=== PATIENT | female | born 1960 | race Caucasian/White ===

== ENCOUNTER 2017-04-11 20:54 | Inpatient (IN) | payer OTHER ==
[~2017-04-11] VITALS: Ht 172.7 cm; Wt 89.8 kg
[~2017-04-11 20:54] MED LIST: GABA-636 PO; HYDR25CA1 PO; OXYC1TAB PO; TRA200 PO
[2017-04-11 21:06] VITALS: BP 123/73
[2017-04-11] MEDS ORDERED: [UNRECOGNIZED DRUG - CODE] PO (21:11)
[2017-04-11] MEDS ORDERED: TOPI25TA41 PO (21:11)
--- NOTE | 2017-04-11 21:56 | NUR ---
TO ER BED 11
--- NOTE | 2017-04-11 21:58 | NUR ---
56/F CAME IN W C/O 09/25 DIFFUSED ABD PAIN X 1 WEEK. PT STATES SHE IS SCHEDULED FOR CT SCAN ORDERED BY PMD FOR SIMILAR SYMPTOMS, STATES "IT FEELS LIKE ITS BURNING, THERE'S A BULGE ON MY LEFT UPPER STOMACH WHEN I STAND UP". ABD SOFT, ROUND, DIFFUSSED TENDERNESS WITH HERNIA ON LUQ NOTED, BS ACTIVE X 4. REPORTS NAUSEA, DENIES V/D, FEVER/CHILLS, SOB/CP, DENIES DYSURIA/HEMATURIA. PMH: FIBROMYALGIA, CHRONIC BACK PAIN, RX: PERCOCET
[2017-04-11 23:13] LABS: APPEARANCE,URINE CLOUDY (CLEAR); BILIRUBIN,URINE NEGATIVE (NEGATIVE); BLOOD, URINE NEGATIVE (NEGATIVE); COLOR,URINE YELLOW (YELLOW); LEUKOCYTE ESTERASE ,URINE NEGATIVE (NEGATIVE); NITRITE, URINE POSITIVE (NEGATIVE); PH,URINE 5.5 (5.0-9.0); UGLUCOSE NEGATIVE (NEGATIVE)
[2017-04-11 23:25] LABS: RBC,URINE 0-5 (RARE) /HPF (0-5)
[2017-04-11 23:26] LABS: CALCIUM OXALATE CRYSTALS,UR 0-10 /HPF (None Seen)
[2017-04-11 23:50] LABS: BASOPHILS # (AUTO) 0.5 K/uL (0.00-0.22); BASOPHILS % (AUTO) 4.9 % (0.0-2.0); EOSINOPHILS # (AUTO) 0.4 K/uL (0-0.4); EOSINOPHILS % (AUTO) 4.8 % (0.0-4.0); HEMATOCRIT 43.7 % (36-48); HEMOGLOBIN 14.4 g/dL (12.0-16.0); LYMPHOCYTES # (AUTO) 2.6 K/uL (2.5-16.5); LYMPHOCYTES % (AUTO) 28.7 % (20.5-51.1); MEAN CORPUSCULAR HEMOGLOBIN 29 pg (27-31); MEAN CORPUSCULAR HGB CONC 33 g/dL (33-37); MEAN CORPUSCULAR VOLUME 89 fL (80-94); MONOCYTES # (AUTO) 0.7 K/uL (0.8-1.0); MONOCYTES % (AUTO) 7.9 % (1.7-9.3); NEUTROPHILS % (AUTO) 53.7 % (42.2-75.2); PLATELET COUNT (AUTO) 246 K/uL (140-450); RED BLOOD CELL COUNT(AUTO) 4.91 MIL/uL (4.20-5.40); RED CELL DISTRIBUTION WIDTH 12.8 % (11.6-13.7); WHITE BLOOD COUNT (AUTO) 9.2 K/uL (4.8-10.8)
[2017-04-11 23:59] LABS: CARBON DIOXIDE 26.8 mmol/L (21-32); CREATININE 0.7 mg/dL (0.6-1.3); POTASSIUM 3.8 mmol/L (3.5-5.1)
[2017-04-12 00:05] LABS: ALBUMIN 3.5 g/dL (3.4-5.0); TOTAL BILIRUBIN 0.5 mg/dL (0.0-1.0)
[2017-04-12] MEDS ORDERED: NACL 0.9% 1,000 ML IV ONE (00:05)
[2017-04-12] MEDS ORDERED: MORPHINE SULFATE 4 MG/ML SYR IVP ONE (00:05)
[2017-04-12] MEDS ORDERED: ONDANSETRON 4 MG/2 ML VIAL IVP ONE (00:05)
[2017-04-12] MEDS ORDERED: NITROFURANTOIN 100 MG CAP PO SCH (00:10)
[2017-04-12] MEDS ORDERED: MORPHINE SULFATE 4 MG/ML SYR ONE (00:14)
[2017-04-12] MEDS ORDERED: ONDANSETRON 4 MG/2 ML VIAL ONE (00:15)
--- NOTE | 2017-04-12 00:41 | NUR ---
RECIEVED ROOM NUMBER FOR PT. 116
[2017-04-12] MEDS ORDERED: NITROFURANTOIN 100 MG CAP ONE (00:54)
--- NOTE | 2017-04-12 01:01 | NUR ---
Patient appears to be resting comfortably in bed. Vital Signs within normal limits. Respirations even and unlabored.
[2017-04-12] MEDS ORDERED: HYDROcodone/APAP 7.5/325 MG 1 TAB PO PRN ×2 (01:15→20:30)
[2017-04-12] MEDS ORDERED: ACETAMINOPHEN 325 MG TAB PO PRN ×2 (01:15→20:35)
[2017-04-12] MEDS ORDERED: ONDANSETRON 4 MG/2 ML VIAL IVP PRN ×2 (01:15→20:35)
--- NOTE | 2017-04-12 01:19 | NUR ---
PO MEDS GIVEN-NADR AT THIS TIME
[2017-04-12 01:38] LABS: PROTHROMBIN TIME 10.6 secs (10.8-13.4)
--- NOTE | 2017-04-12 01:45 | NUR ---
Patient will be admitted to care of [facility]. Admited to TELE. Will go to room 116A . Belongings list completed. BEDSIDE Report to KIRTI WHITE. IV INFUSING UPON TRANSFER
[2017-04-12 01:47] LABS: CHOL/HDL RATIO 4.6 (1-4.5); FREE T4 (FREE THYROXINE) 1.04 ng/dL (0.76-1.46); MAGNESIUM 2.1 mg/dL (1.8-2.4); THYROID STIMULATING HORMONE 2.38 uIU/mL (0.34-3.74)
[2017-04-12] MEDS: NACL 0.9% 1,000 ML IV SCH ×4 (02:03→20:35)
[2017-04-12 02:05] VITALS: BP 107/75
--- NOTE | 2017-04-12 02:05 | NUR ---
ADMITTED PATIENT TO THE TELE UNIT, PATIENT AWAKE ALERT ORIENTED X4, NO S/S OF DISTRESS NOTED, RESPIRATION EVEN AND UNLABORED, TELE MONITOR PLACED ON PATIENT, IV INFILTRATED, IV SITE TENDER AND FLUIDS LEAKING NOTED, PLAN OF CARE DISCUSSED, PATIENT VERBALIZED UNDERSTANDING, CALL LIGHT WITHIN REACH, SAFETY MEASURE ENSURED, WILL CONTINUE TO MONITOR.
[2017-04-12] MEDS ORDERED: CARV12.5 PO (02:33)
[2017-04-12 02:43] LABS: BARBITURATE, URINE NEG. ng/ml (NEG <=200); BENZODIAZEPINE, URINE NEG. ng/mL (NEG <=200); CANNABINOID, URINE NEG. ng/mL (NEG <=50); COCAINE, URINE NEG. ng/mL (NEG <=300); OPIATE, URINE NEG. ng/mL (NEG <=2000); PHENCYCLIDINE SCREEN,URINE NEG. ng/mL (NEG <=25)
--- NOTE | 2017-04-12 03:00 | NUR ---
STARTED NEW IV 22G ON RT FOREARM. PATIENT TOLERATED WELL. OLD IV TAKEN OUT, TIP INTACT, NO ACTIVE BLEEDING NOTED. WILL CONTINUE TO MONITOR.
[2017-04-12] MEDS ORDERED: NITROGLYCERIN 0.4 MG TAB SL PRN ×2 (03:05→20:40)
[2017-04-12] MEDS ORDERED: MORPHINE SULFATE 2 MG/ML SYR IVP PRN (03:20)
--- NOTE | 2017-04-12 05:28 | NUR ---
STRAINED 300ML URINE, NO CALCULUS FOUND.
--- NOTE | 2017-04-12 07:27 | NUR ---
ENDORSED PLAN OF CARE TO DAY SHIFT RN, PATIENT IS IN STABLE CONDITION, NO S/S OF DISTRESS NOTED.
--- NOTE | 2017-04-12 07:30 | NUR ---
RECEIVED PT REPORT FROM [facility] SHIFT NURSE. PT IS AWAKE ALERT ORIENTED X4, NO S/S OF DISTRESS NOTED. PT IS ON TELE. IV NOTED TO THE RIGHT FA 22G, PATENT, INTACT AND INFUSING WELL. PLAN OF CARE DISCUSSED, PATIENT VERBALIZED UNDERSTANDING, CALL LIGHT WITHIN REACH, SAFETY MEASURE ENSURED, WILL CONTINUE TO MONITOR.
[2017-04-12 08:00] VITALS: BP_SYST 107; BP_SYST 133; BP_DIAS 70; BP_DIAS 96
[2017-04-12] MEDS ORDERED: TAMSULOSIN 0.4 MG CAP PO SCH (08:30)
[2017-04-12] MEDS ORDERED: metroNIDAZOLE 500 MG/NS PREMIX 100 ML IV ONE ×2 (08:34→13:00)
[2017-04-12] MEDS ORDERED: DOCUSATE SODIUM 100 MG GELCAP PO ONE (08:37)
[2017-04-12] MEDS ORDERED: SERTRALINE 50 MG TAB ONE (08:37)
[2017-04-12] MEDS ORDERED: ASPIRIN 81 MG TAB.CHEW ONE (08:37)
[2017-04-12] MEDS ORDERED: TAMSULOSIN 0.4 MG CAP ONE (08:38)
[2017-04-12] MEDS ORDERED: LACTOBACILLUS RHAMNOSUS GG 1 EACH CAP ONE (08:38)
[2017-04-12] MEDS ORDERED: PANTOPRAZOLE 40 MG TABEC PO ONE (08:38)
[2017-04-12] MEDS ORDERED: LEVOFLOXACIN 750 MG/D5W PREMIX 150 ML IV ONE (08:39)
[2017-04-12] MEDS: metroNIDAZOLE 500 MG/NS PREMIX 100 ML IV SCH ×3 (08:43→21:06)
[2017-04-12] MEDS ORDERED: CARVEDILOL 12.5 MG TAB PO SCH (09:00)
[2017-04-12] MEDS ORDERED: LACTOBACILLUS RHAMNOSUS GG 1 EACH CAP PO SCH (09:00)
[2017-04-12] MEDS ORDERED: DOCUSATE SODIUM 100 MG GELCAP PO SCH (09:00)
[2017-04-12] MEDS ORDERED: ASPIRIN 81 MG TAB.CHEW PO SCH (09:00)
[2017-04-12] MEDS ORDERED: LEVOFLOXACIN 750 MG/D5W PREMIX 150 ML IV SCH (09:00)
[2017-04-12] MEDS ORDERED: PANTOPRAZOLE 40 MG TABEC PO SCH (09:00)
[2017-04-12] MEDS ORDERED: LISINOPRIL 5 MG TAB PO SCH (09:00)
[2017-04-12] MEDS ORDERED: SERTRALINE 50 MG TAB PO SCH (09:00)
--- NOTE | 2017-04-12 09:09 | NUR ---
PATIENT HAS BEEN SCREENED AND CATEGORIZED HIGH NUTRITION RISK. PATIENT WILL BE SEEN WITHIN 1-2 DAYS OF ADMISSION. 04/12/17-04/13/[address]
--- NOTE | 2017-04-12 09:15 | NUR ---
PT URINATED, URINE WAS STRAINED, NO STONES FOUND.
[2017-04-12] MEDS ORDERED: MORPHINE SULFATE 2 MG/ML SYR ONE (09:16)
[2017-04-12 12:00] VITALS: BP 103/69
[2017-04-12 16:00] VITALS: BP 121/75
--- NOTE | 2017-04-12 16:00 | NUR ---
VITAL SIGN TAKEN. PT DENIES ABD PAIN AND STATED HAVE NOT FELT SINCE AFTER LUNCH.
--- NOTE | 2017-04-12 19:30 | NUR ---
PATIENT IS CURRENTLY RESTING IN BED AWAKE ALERT ORIENTED ABLE TO MAKE NEEDS KNOWN PATIENT IS AMBULATORY BUT IS CURRENTLY TALKING ON THE PHONE WITH HER FAMILY.IVF INFUSING WELL IV SITE PATENT NO INFILTRATION NOTED. PATIENT IS AWARE THAT HER URINE IS BEING STRAINED.PATIENT VERBALIZES UNDERSTANDING. VITALS SIGNS CHECKED AND CURRENTLY WNL. PATIENT DENIES ANY PAIN AT THIS TIME. CALL LIGHT WITHIN REACH WILL CONTINUE TO MONITOR.
--- NOTE | 2017-04-12 19:30 | NUR ---
ENDORSED PLAN OF CARE TO [employer]Y HEAT CABINET ATTENDANT NURSE. PT IN CONDITION STABLE.
--- NOTE | 2017-04-12 19:31 | NUR ---
Patient's Plan of Care was discussed and reviewed with LOT BOSS: HUONG SMITH
[2017-04-12 20:00] VITALS: BP 119/74
--- NOTE | 2017-04-12 20:37 | NUR ---
PATIENT COMPLAINS OF MODERATE ABD PAIN 6/10 AND I WAS GOING TO GIVE HER NORCO AND PATIENT STATES,"NO, IM ALLERGIC TO NORCO AND GABAPENTIN." I TOLD THE PATIENT I WILL INFORM THE MD SO WE CAN GET THE ORDER CHANGED. PATIENT STATES,"I HAVE BEEN GETTING MORPHINE IV AND IT WAS WORKING FOR ME WHY CAN'T YOU GIVE ME THE MORPHINE." I EXPLAINED TO THE PATIENT THAT IT WAS DISCONTINUED BUT I WILL HAVE TO TALK TO THE MD FIRST AND MD WILL DECIDE. PATIENT VERBALIZES UNDERSTANDING.
[2017-04-12] MEDS ORDERED: KETOROLAC 30 MG/ML VIAL IVP SCH (20:40)
--- NOTE | 2017-04-12 20:42 | NUR ---
I CALLED MD RESIDENT AND EXPLAINED TO HER THAT PATIENT IS HAVING MODERATE ABDOMINAL PAIN 6/10 AND PATIENT STATES SHE IS ALLERGIC TO NORCO AND WAS ASKING ME IF SHE CAN HAVE MORPHINE BUT I NOTICED THAT THE ORDER FOR THE MORPHINE WAS DISCONTINUED AND THEN PATIENT SAID SHE TAKES PERCOCET AT HOME FOR HER PAIN.MD SAID I WILL ORDER TORADOL FOR HER. MD RESIDENT WILL ORDER TORADOL WILL WAIT FOR NEW ORDERS AND WILL CARRY THEM OUT.
[2017-04-12] MEDS: CARVEDILOL 12.5 MG TAB PO SCH (20:51)
[2017-04-12] MEDS: DOCUSATE SODIUM 100 MG GELCAP PO SCH (20:52)
[2017-04-12] MEDS ORDERED: ATORVASTATIN 20 MG TAB PO SCH ×2 (21:00)
[2017-04-12] MEDS ORDERED: TOPIRAMATE 25 MG TAB PO SCH ×2 (21:00)
--- NOTE | 2017-04-12 21:10 | NUR ---
CHRISTOPHER LORA INFORMED ME THAT PATIENT IS COMPLAINING OF PAIN TO IV SITE AFTER IV TORADOL ADMINSTRATION CHRISTOPHER LORA TOLD ME SHE CHECKED THE IV AND IT AND SHE SAID SHE SAW NO REDNESS AROUND THE IV SITE OR PUFFINESS AND SHE CHECKED THE IV FOR BLOOD RETURN AND RN SAID SHE GOT BLOOD RETURN AND TOLD ME SHE TOLD THE PATIENT WE WILL JUST MONITOR FOR NOW.I TOLD HER I WILL GO AND SEE THE PATIENT WELL.
--- NOTE | 2017-04-12 21:15 | NUR ---
I WENT TO CHECK THE IV SITE AND I SEE NO REDNESS OR PUFFINESS TO IV SITE I EXPLAINED TO THE PATIENT THAT SOME MEDICATIONS MAY IRRITATE WHEN ADMINISTERED BUT I EXPLAINED TO THE PATIENT TO CALL ME IF SHE IS STILL FEELING DISCOMFORT. PATIENT VERBALIZES UNDERSTANDING PATIENT STATES,"THE PAIN AND IRRITATION TO THE IV SITE IS GONE I THINK I'LL BE FINE IT MUST HAVE BEEN THE MEDICATION." WILL CONTINUE TO OBSERVE.
--- NOTE | 2017-04-12 23:55 | NUR ---
PATIENT IS CURRENTLY SLEEPING IN BED IN NO DISTRESS AT THIS TIME NO COMPLAINS OF PAIN IVF CONTINUES TO INFUSE WELL IV SITE PATENT NO PAIN TO IV SITE AND NO INFILTRATION NOTED.WILL CONTINUE TO MONITOR.
[2017-04-13] VITALS: BP 110/71
[2017-04-13] MEDS: NACL 0.9% 1,000 ML IV SCH (00:04)
--- NOTE | 2017-04-13 01:33 | NUR ---
PATIENT SLEEPING COMFORTABLY IN BED NO PAIN OR DISCOMFORT NOTED. CALL LIGHT WITHIN REACH.
--- NOTE | 2017-04-13 04:04 | NUR ---
PATIENT IS CURRENTLY RESTING IN BED SLEEPING IVF INFUSING WELL IV SITE PATENT. CALL LIGHT WITHIN REACH WILL CONTINUE TO MONITOR.
[2017-04-13] MEDS: metroNIDAZOLE 500 MG/NS PREMIX 100 ML IV SCH (05:08)
[2017-04-13 06:59] LABS: BASOPHILS # (AUTO) 0.3 K/uL (0.00-0.22); EOSINOPHILS # (AUTO) 0.4 K/uL (0-0.4); LYMPHOCYTES # (AUTO) 2.1 K/uL (2.5-16.5)
[2017-04-13 07:00] LABS: BASOPHILS % (AUTO) 4.1 % (0.0-2.0); EOSINOPHILS % (AUTO) 5.5 % (0.0-4.0); HEMATOCRIT 39.1 % (36-48); LYMPHOCYTES % (AUTO) 28.7 % (20.5-51.1); MEAN CORPUSCULAR HEMOGLOBIN 30 pg (27-31); MEAN CORPUSCULAR HGB CONC 33 g/dL (33-37); MEAN CORPUSCULAR VOLUME 89 fL (80-94); MONOCYTES # (AUTO) 0.8 K/uL (0.8-1.0); MONOCYTES % (AUTO) 10.3 % (1.7-9.3); NEUTROPHILS # (AUTO) 3.7 K/uL (1.8-7.7); NEUTROPHILS % (AUTO) 51.4 % (42.2-75.2); PLATELET COUNT (AUTO) 200 K/uL (140-450); RED BLOOD CELL COUNT(AUTO) 4.38 MIL/uL (4.20-5.40); RED CELL DISTRIBUTION WIDTH 13.1 % (11.6-13.7); WHITE BLOOD COUNT (AUTO) 7.3 K/uL (4.8-10.8)
--- NOTE | 2017-04-13 07:18 | NUR ---
PATIENT STABLE REPORT ENDORSED TO CHRISTOPHER MATHIS AT BEDSIDE ALSO ENDORSED TO FOLLOW UP WITH MEDICAL RECORDS FROM [facility].
--- NOTE | 2017-04-13 07:20 | NUR ---
RECEIVED PT REPORT FROM [facility] SHIFT NURSE. PT IS AWAKE ALERT ORIENTED X4, NO S/S OF DISTRESS NOTED. PT IS ON TELE. IV NOTED TO THE RIGHT FA 22G, PATENT, INTACT AND INFUSING WELL. PLAN OF CARE DISCUSSED, PATIENT VERBALIZED UNDERSTANDING, CALL LIGHT WITHIN REACH, SAFETY MEASURE ENSURED, WILL CONTINUE TO MONITOR.
[2017-04-13 07:29] LABS: ANION GAP 12.7 (8-16); CARBON DIOXIDE 25.2 mmol/L (21-32); CREATININE 0.8 mg/dL (0.6-1.3); POTASSIUM 3.9 mmol/L (3.5-5.1)
[2017-04-13 07:36] LABS: PHOSPHORUS 4.1 mg/dL (2.5-4.9)
[2017-04-13 08:00] VITALS: BP 136/89
[2017-04-13] MEDS ORDERED: TAMSULOSIN 0.4 MG CAP PO SCH (08:30)
[2017-04-13] MEDS: DOCUSATE SODIUM 100 MG GELCAP PO SCH (08:34)
[2017-04-13] MEDS: CARVEDILOL 12.5 MG TAB PO SCH (08:35)
[2017-04-13] MEDS ORDERED: ASPIRIN 81 MG TAB.CHEW PO SCH (09:00)
[2017-04-13] MEDS ORDERED: LACTOBACILLUS RHAMNOSUS GG 1 EACH CAP PO SCH (09:00)
[2017-04-13] MEDS ORDERED: PANTOPRAZOLE 40 MG TABEC PO SCH (09:00)
[2017-04-13] MEDS ORDERED: LISINOPRIL 5 MG TAB PO SCH (09:00)
[2017-04-13] MEDS ORDERED: LEVOFLOXACIN 750 MG/D5W PREMIX 150 ML IV SCH (09:00)
[2017-04-13] MEDS ORDERED: SERTRALINE 50 MG TAB PO SCH (09:00)
--- NOTE | 2017-04-13 09:00 | NUR ---
URINE STRAINED, NO STONES NOTED. NO S/S OF ACUTE DISTRESS AT THIS TIME. PT FINISHED BREAKFAST.
[2017-04-13] MEDS ORDERED: PANT40EC28 PO (09:12)
[2017-04-13] MEDS ORDERED: LEVO750T2 PO (09:12)
[2017-04-13] MEDS ORDERED: TAMS0.4C96 PO (09:12)
[2017-04-13] MEDS ORDERED: LACT10CA PO (09:12)
[2017-04-13] MEDS ORDERED: ATOR20TA40 PO (09:12)
[2017-04-13] MEDS ORDERED: ONDA4TAB PO (10:37)
[2017-04-13] MEDS ORDERED: SIME80CT70 PO (10:37)
--- NOTE | 2017-04-13 12:30 | NUR ---
PT DISCHARGED PER MD ORDER. DISCHARGE INSTRUCTION AND MEDICATION TEACHING GIVEN. MADE PT AWARE OF HER FOLLOW UP APPOINTMENT WITH DR ORELLANA. IV CATH DC'D, TIP INTACT, PRESSURE APPLIED. PT LEFT IN STABLE CONDITION AND WITH ALL HER BELONGINGS. WHEELED PT TO HER PICK-UP VEHICLE.
== END 2017-04-13 12:30 | disposition home or self-care (01) | DRG 392 ==
LOC: MED 20:54 → MTU 04-12 01:18
PROVIDERS: ADMIT Family Medicine Sports Medicine; ATTEND Family Medicine Sports Medicine
DX: K29.70 Gastritis, unspecified, without bleeding (principal); I31.3 Pericardial effusion (noninflammatory); K80.00 Calculus of gallbladder with acute cholecystitis without obstruction; E83.59 Other disorders of calcium metabolism; N39.0 Urinary tract infection, site not specified; K21.9 Gastro-esophageal reflux disease without esophagitis; K52.9 Noninfective gastroenteritis and colitis, unspecified; E78.5 Hyperlipidemia, unspecified; N29 Other disorders of kidney and ureter in diseases classified elsewhere; I10 Essential (primary) hypertension; M79.7 Fibromyalgia; F32.9 Major depressive disorder, single episode, unspecified; F41.9 Anxiety disorder, unspecified; Z88.0 Allergy status to penicillin; M19.90 Unspecified osteoarthritis, unspecified site; M54.9 Dorsalgia, unspecified
CPT/HCPCS: 36415; 71045; 76705; 80048; 80053; 80305; 81001; 82150; 83036; 83690; 83735; 83880; 84100; 84439; 84443; 84484; 85025; 85610; 85730; 87081; 87086; 87186; 93005; 96361; 96374; 96375; 99285; J1885; J1956; J2270; J2405; J3490; J7030; Q0092

== ENCOUNTER 2018-04-30 09:28 | Emergency (ER) | payer OTHER ==
[~2018-04-30] VITALS: Ht 172.7 cm; Wt 97.2 kg
[~2018-04-30 09:28] MED LIST changes: +ATOR20TA40 PO; +CARV12.5 PO; -GABA-636 PO; +LACT10CA PO; +LEVO750T2 PO; +ONDA4TAB PO; +PANT40EC28 PO; +SIME80CT70 PO; +TAMS0.4C96 PO; +TOPI25TA41 PO; -TRA200 PO; +[UNRECOGNIZED DRUG - CODE] PO
[2018-04-30 09:35] VITALS: BP 139/94
--- NOTE | 2018-04-30 10:01 | NUR ---
57 YO F BIB W/ C/O PRODUCTIVE COUGH, CONGESTION, AND SORE THROAT X 1.5 WEEKS. PT REPORTS HX PNEUMONIA AND BRONCHITIS, SO WANTED TO GET CHECKED OUT BEFORE HER SYMPTOMS WORSEN. PT W/ WHEEZING EXPIRATION, O2 SAT 98% RA. RR EVEN AND UNLABORED. DENIES NVD; CP; SOB AT THIS TIME. HX PNEUMONIA, BRONCHITIS, CHRONIC BACK PAIN, FIBROMYALGIA, DEPRESSION RX YES, STATES THAT SHE HAS NOT BEEN TAKING THEM WITH HER COLD BECAUSE SHE IS TAKING NYQUIL.
[2018-04-30 11:04] VITALS: BP 139/94
--- NOTE | 2018-04-30 11:05 | NUR ---
Patient discharged with v/s stable. Written and verbal after care instructions given and explained. Patient alert, oriented and verbalized understanding of instructions. Ambulatory with steady gait. All questions addressed prior to discharge. ID band removed. Patient advised to follow up with PMD. Rx of MATTHEW GARCIA given. Patient educated on indication of medication including possible reaction and side effects. Opportunity to ask questions provided and answered.
== END 2018-04-30 11:05 | disposition home or self-care (01) ==
LOC: MED 09:28
DX: B34.9 Viral infection, unspecified (principal); K21.9 Gastro-esophageal reflux disease without esophagitis; I10 Essential (primary) hypertension; Z79.899 Other long term (current) drug therapy; Z88.0 Allergy status to penicillin; Z88.8 Allergy status to other drugs, medicaments and biological substances
CPT/HCPCS: 99283

== ENCOUNTER 2018-07-19 21:21 | Emergency (ER) | payer OTHER ==
[~2018-07-19] VITALS: Ht 172.7 cm; Wt 98.0 kg
[2018-07-19 21:27] VITALS: BP 142/91
--- NOTE | 2018-07-19 21:31 | NUR ---
PT AMBULATED WITH WALKER TO BED 10
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
--- NOTE | 2018-07-19 21:49 | NUR ---
DR BHARDWAJ AT BEDSIDE.
[2018-07-19] MEDS ORDERED: SULFAMETH/TRIMETH DS 800/160MG 1 TAB PO ONE (21:50)
[2018-07-19 22:05] VITALS: BP 138/82
--- NOTE | 2018-07-19 22:05 | NUR ---
DISCHARGE PAPERS GIVEN TO PT. 0/10 PAIN. AREA ON RIGHT UPPER LEG RED WITHOUT DRAINAGE. AFEBRILE. VSS. RX OF BENADRYL AND BACTRIM GIVEN. SIDE EFFECTS EXPLAINED. INSTRUCTED TO F/U WITH PCP AND WHEN TO RETURN TO ER. VERBALLIZED UNDERSTANDING OF DC INSTRUCTIONS. ALL QUESTIONS ANSWERED.
== END 2018-07-19 22:05 | disposition home or self-care (01) ==
LOC: MED 21:21
DX: T63.441A Toxic effect of venom of bees, accidental (unintentional), initial encounter (principal); L08.9 Local infection of the skin and subcutaneous tissue, unspecified; K21.9 Gastro-esophageal reflux disease without esophagitis; I10 Essential (primary) hypertension; Z79.2 Long term (current) use of antibiotics; Z79.899 Other long term (current) drug therapy; Z79.891 Long term (current) use of opiate analgesic; Z88.5 Allergy status to narcotic agent; Z88.0 Allergy status to penicillin; Z88.6 Allergy status to analgesic agent; Z88.8 Allergy status to other drugs, medicaments and biological substances; Y92.89 Other specified places as the place of occurrence of the external cause
CPT/HCPCS: 99283